=== PATIENT | female | born 1955 | race Hispanic/Latino ===

== ENCOUNTER 2017-07-09 19:01 | Emergency (ER) | payer BC, OTHER ==
[~2017-07-09] VITALS: Ht 160 cm; Wt 61.2 kg
[~2017-07-09 19:01] MED LIST: ATORVASTATIN CA40 MG PO; Z.0.LISINOPRIL40 MG; Z.0.LYRICA100 MG; Z.0.NEXIUM40 MG; Z.0.NORCO 10-325 T1; Z.0.SOMA350 MG
[2017-07-09] MEDS ORDERED: HYDROCODONE/APAP 10MG-325MG TAB PO ONE (19:30)
--- NOTE | 2017-07-09 20:16 | Diagnostic Imaging Report ---
Examination: CT BRAIN WITHOUT CONTRAST History:Fall; head injury. Comparison studies:Head CT dated February 07, 2015. Technique: Axial images were obtained from the skull base to the vertex. Coronal and sagittal images reconstructed from the axial data. Intravenous contrast: None Findings: Scalp: No abnormalities. Bones: No fractures, blastic or lytic lesions. Brain sulci: Appropriate for age. Ventricles: Normal in size and configuration. No hydrocephalus. Parenchyma: Again demonstrated is a 1 cm rounded hypodense lesion in the inferior right putamen which could represent either an old lacunar infarct or dilated perivascular space. No masses, hemorrhage, acute or chronic vascular insults. Sellar/suprasellar region: No abnormalities. Craniocervical junction: Patent foramen magnum. No Chiari one malformation. Incidental findings: None. Impression: 1. No new or acute intracranial abnormalities. No change from February 07, 2015. 2. Unchanged dilated perivascular space versus chronic lacunar infarct in the inferior right putamen. Signed by: Dr. Leola Chapman M.D. on 07/09/2017 8:13 PM
--- NOTE | 2017-07-09 20:43 | Diagnostic Imaging Report ---
HAND 3+ VIEWS LEFT HISTORY: Fall. COMPARISON: None available. FINDINGS: Bones: Small bony fragment along the dorsal wrist may represent an age indeterminate triquetral fracture. Otherwise, no acute displaced fractures. Osseous alignment is within normal limits. Joints: The joint spaces are well-maintained. Soft tissues: The soft tissues appear unremarkable. IMPRESSION: Small bony fragment along the dorsal wrist may represent an age indeterminate triquetral fracture. Recommend correlation with focal point tenderness. Signed by: DR. Darrin Forman MD on 07/09/2017 8:40 PM
[2017-07-09 21:24] VITALS: BP 152/98
== END 2017-07-09 21:30 | disposition home or self-care (01) ==
LOC: ER 19:01
DX: S62.102A Fracture of unspecified carpal bone, left wrist, initial encounter for closed fracture (principal); S00.83XA Contusion of other part of head, initial encounter; I10 Essential (primary) hypertension; M79.7 Fibromyalgia; W01.0XXA Fall on same level from slipping, tripping and stumbling without subsequent striking against object, initial encounter; Y92.019 Unspecified place in single-family (private) house as the place of occurrence of the external cause
CPT/HCPCS: 70450; 99284

== ENCOUNTER → 2018-01-04 | Outpatient (CLI) | payer BC ==
--- NOTE | 2018-01-04 14:53 | Diagnostic Imaging Report ---
PROCEDURE:BONE DXA DUAL ENERGY INDICATION: Postmenopausal osteoporosis screening. The patient history questionnaire was completed and is available on PACS. COMPARISON:None. FINDINGS: Evaluation of the left hip and lumbar spine was performed utilizing DEXA Hologic bone densitometer. The study is technically adequate. The patient's fracture risk is compared to an age-matched control. The patient denies prior surgery/fracture of the spine, hips or forearm. Left femoral neck bone mineral density: 0.663 g/cm2, T-score is -1.8, Z-score is -0.4. Left total hip bone mineral density: 0.819 g/cm2, T-score is -1.1, Z-score is 0.0. Lumbar spine total bone mineral density: 0.842 g/cm2, T-score is -1.9, Z-score is -0.2. IMPRESSION: Bone mineralization by WHO Classification is osteopenia. The fracture risk is increased. Correlate clinically for the necessity and timing of the next bone mineral density study. Dictated by: Abiel Acosta M.D. on 01/04/2018 at 14:58 Electronically approved by: Abiel Acosta M.D. on 01/04/2018 at 14:58
== END ==
LOC: MAMMO 12-24 10:45
PROVIDERS: ATTEND Family Medicine
DX: Z12.31 Encounter for screening mammogram for malignant neoplasm of breast (principal); Z13.820 Encounter for screening for osteoporosis
CPT/HCPCS: 77067; 77080

== ENCOUNTER → 2018-02-05 | Outpatient (CLI) | payer BC ==
--- NOTE | 2018-02-06 08:57 | Diagnostic Imaging Report ---
#[id number] - [id number] #UNILATERAL LEFT DIGITAL DIAGNOSTIC MAMMOGRAM WITH SPOT COMPRESSION: 02/05/2018 Comparison is made to exam dated: 01/04/2018 mammogram - [facility]. Current study contains 3 films. There are scattered fibroglandular elements in the left breast. The focal density in the left breast appears to "press out". No mass is seen. No significant masses, calcifications, or other findings are seen in the breast. There has been no significant interval change. IMPRESSION: BENIGN There is no mammographic evidence of malignancy. A 1 year screening mammogram is recommended. The patient will be notified by letter of the results. Juan Alamo Jr., D.O. cw/:02/05/2018 14:01:11 Paying Teller: Jaymie YOUNG(R)(M), [facility] letter sent: Compared to Prior B9 Mammogram BI-RADS: 2 Benign
== END ==
LOC: MAMMO 12:00
PROVIDERS: ATTEND Family Medicine
DX: R92.2 Inconclusive mammogram (principal)

== ENCOUNTER 2020-02-18 17:55 | Observation (INO) | payer MEDICARE, BC ==
[~2020-02-18] VITALS: Ht 160 cm; Wt 71.2 kg
--- OUTSIDE RECORDS SUMMARY | 2020-02-18 18:11 | XMS REPORT | Continuity of Care Document ---
Author Author [facility] t Organization [facility] Address [address] [place] [address] [place] [phone] Phone Unavailable Care Team Providers Care Cylinder Loader Name Role Phone AJAY FATIMA Attphys Unavailable Ema ZEPEDA Attphys Unavailable Problems This patient has no known problems. Allergies, Adverse Reactions, Alerts This patient has no known allergies or adverse reactions. Medications This patient has no known medications. Procedures This patient has no known procedures. Results Test Description Test Time Test Comments Results Result Comments Source MAMMOGRAPHY DIGITAL DX UNI LT 2018-02-05 12:52:[address] [address] Patient Name: DEB JIANG MR #: [id number] : 1955 Age/Sex: 62/F Req #: [id number] Adm Physician: Ordered by: AJAY FATIMA MD Report #: [id number] Location: MAMMO Room/Bed: Procedure: [id number] MG/MAMMOGRAPHY DIGITAL DX UNI LT Exam Date: 02/05/18 Exam Time: 1230 REPORT STATUS: Signed #[id number] - [id number] #UNILATERAL LEFT DIGITAL DIAGNOSTIC MAMMOGRAM WITH SPOT COMPRESSION: 02/05/2018 Comparison is made to exam dated: 01/04/2018 mammogram - [facility]. Current study contains 3 films. There are scattered fibroglandular elements in the left breast. The focal density in the left breast appears to "press out". No mass is seen. No significant masses, calcifications, or other findings are seen in the breast. There has been no significant interval change. IMPRESSION: BENIGN There is no mammographic evidence of malignancy. A 1 year screening mammogram is recommended. The patient will be notified by letter of the results. Juan Alamo Jr., D.O. cw/:02/05/2018 14:01:11 Reproducer: Jaymie FULLER)(Zeb), [facility] letter sent: Compared to Prior B9 Mammogram BI-RADS: 2 Benign Dictated By: JUAN ALAMO DO 140 Transcribed By: PRAVEENA on 02/05/181400 COPY TO: AJAY FATIMA MD BONE DXA DUAL ENERGY 2018-01-04 14:58:00 [place] [address] Patient Name: DEB JIANG MR #: [id number] : 1955 Age/Sex: 62/F Req #: [id number] [facility] Physician: Ordered by: AJAY FATIMA MD Report #: [id number] Location: MAMMO Room/Bed: Procedure: [id number] DX/BONE DXA DUAL ENERGY Exam Date: Exam Time: REPORT STATUS: Signed PROCEDURE: BONE DXA DUAL ENERGY INDICATION: Postmenopausal osteoporosis screening. The patient history questionnaire was completed and is available on PACS. COMPARISON: None. FINDINGS: Evaluation of the left hip and lumbar spine was performed utilizing DEXA Hologic bone densitometer. The study is technically adequate. The patient's fracture risk is compared to an age-matched control. The patient denies prior surgery/fracture of the spine, hips or forearm. Left femoral neck bone mineral density: 0.663 g/cm2, T-score is -1.8, Z-score is -0.4. Left total hip bone mineral density: 0.819 g/cm2, T-score is -1.1, Z-score is 0.0. Lumbar spine total bone mineral density: 0.842 g/cm2, T-score is -1.9, Z-score is -0.2. IMPRESSION: Bone mineralization by WHO Classification is osteopenia. The fracture risk is increased. Correlate clinically for the necessity and timing of the next bone mineral density study. Dictated by: Laurent Acosta M.D. on 01/04/2018 at 14:58 Electronically approved by: Laurent Acosta M.D. on 01/04/2018 at 14:58 Dictated By: LAURENT ACOSTA MD 1458 T ranscribed By: MARISOL on 01/04/18 1458 COPY TO: AJAY FATIMA MD MAMMOGRAPHY DIGITAL SCR BILAT 2018-01-04 14:19:00 [place] [address] Patient Name: DEB JIANG MR #: [id number] : 1955 Age/Sex: 62/F Req #: [id number] Adm Physician: Ordered by: AJAY FATIMA MD Report #: [id number] Location: MAMMO Room/Bed: Procedure: [id number] MG/MAMMOGRAPHY DIGITAL SCR BILAT Exam Date: 01/04/18 Exam Time: 1333 REPORT STATUS: Signed THIS REPORT HAS BEEN AMENDED. #[id number] - [id number] #BILATERAL DIGITAL SCREENING MAMMOGRAM WITH CAD: 01/04/2018 CLINICAL: Routine screening. No prior exams were available for comparison. Current study contains 4 films. There are scattered fibroglandular elements in both breasts. Current study was also evaluated with a Computer Aided Detection (CAD) system. There is an oval density in the left breast at 10 o'clock middle depth. Vascular calcification and scattered benign calcifications in both breasts are present. No other significant masses, calcifications, or other findings are seen in either breast. IMPRESSION: INCOMPLETE: NEEDS ADDITIONAL IMAGING EVALUATION The oval density in the left breast is indeterminate. Additional views with possible ultrasound are recommended. The patient will be contacted by the Mammography Department to schedule this appointment. Juan Alamo Jr., D.O. cw/:01/24/2018 08:29:01 Reproducer: Jaymie YOUNG(De)(Zeb), [facility] letter sent: Additional Imaging Needed Mammogram BI-RADS: 0 Indeterminate AMENDMENT: 01/31/2018 Juan Alamo Jr., D.O. Comparison to outside mammograms dated 09/14/2016 from [facility] is now possible as they have become available. The oval density appears new. Additional imaging is necessary. Amended BI-RADS: 0 Indeterminate letter sent: Additional Imaging Needed Dictated By: JUAN ALAMO DO 0829 Transcribed By: PRAVEENA on 01/31/18 0916 COPY TO: AJAY FATIMA MD CT BRAIN WO [place] [address] Patient Name: DEB JIANG MR #: [id number] : 1955 Age/Sex: 62/F Req #: [id number] Adm Physician: Ordered by: SHEBA ZEPEDA MD Report #: [id number] Location: ER Room/Bed: Procedure: [id number] CT/CT BRAIN WO Exam Date: 07/09/17 Exam Time: 1945 REPORT STATUS: Signed Examination: CT BRAIN WITHOUT CONTRAST History:Fall; head injury. Comparison studies:Head CT dated February 07, 2015. Technique: Axial images were obtained from the skull base to the vertex. Coronal and sagittal images reconstructed from the axial data. Intravenous contrast: None Findings: Scalp: No abnormalities. Bones: No fractures, blastic or lytic lesions. Brain sulci: Appropriate for age. Ventricles: Normal in size and configuration. No hydrocephalus. Parenchyma: Again demonstrated is a 1 cm rounded hypodense lesion in the inferior right putamen which could represent either an old lacunar infarct or dilated perivascular space. No masses, hemorrhage, acute or chronic vascular insults. Sellar/suprasellar region: No abnormalities. Craniocervical junction: Patent foramen magnum. No Chiari one malformation. Incidental findings: None. Impression: 1. No new or acute intracranial abnormalities. No change from February 07, 2015. 2. Unchanged dilated perivascular space versus chronic lacunar infarct in the inferior right putamen. Signed by: Dr. Brenda Chapman M.D. on 07/09/2017 8:13 PM Dictated By: BRENDA SHARMA MD 12 Transcribed By: REJI on 07/09/172012 COPY TO: SHEBA ZEPEDA MD HAND 3+ VIEWS LEFT [place] [address] Patient Name: DEB JIANG MR #: [id number] : 1955 Age/Sex: 62/F Req #: [id number] Adm Physician: Ordered by: SHEBA ZEPEDA MD Report #: [id number] Location: ER Room/Bed: Procedure: [id number] DX/HAND 3+ VIEWS LEFT Exam Date: 07/09/17 Exam Time: 1944 REPORT STATUS: Signed HAND 3+ VIEWS LEFT HISTORY: Fall. COMPARISON: None available. FINDINGS: Bones: Small bony fragment along the dorsal wrist may represent an age indeterminate triquetral fracture. Otherwise, no acute displaced fractures. Osseous alignment is within normal limits. Joints: The joint spaces are well-maintained. Soft tissues: The soft tissues appear unremarkable. IMPRESSION: Small bony fragment along the dorsal wrist may represent an age indeterminate triquetral fracture. Recommend correlation with focal point tenderness. Signed by: DR. Darrin Lentz MD on 07/09/2017 8:40 PM Dictated By: DARRIN LENTZ MD 39 Transcribed By: REJI on 07/09/172039 COPY TO: SHEBA ZEPEDA MD
--- NOTE | 2020-02-18 18:28 | Emergency Department Note ---
History of Present Illnes History of Present Illness Chief Complaint: Drug Abuse/Intoxication History of Present Illness This is a 64 year old female PATIENTS NOTICED SHE WAS ACTING DIFFERENTLY, CONFUSED, HALLUCINATING. NOT RESPONDING USUAL. HE LET HER "SLEEP IT OFF" AND SHE HAD NOT GOTTEN ANY BETTER. PATIENT DOES NOT REMEMBER WHAT HAPPENED BUT HER HYDROCODONE WAS FILLED YESTERDAY AND 11 ARE MISSING. BACLOFEN BOTTLE ALMOST EMPTY. STATED, "SHE WANTED THE NECK PAIN TO GO AWAY" EMS GAVE HER NARCAN .5 NASAL/.5 IV. PATIENT ARRIVED A/OX4 . 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 Arrival Mode: [facility] Treatment CLINICAL REGISTERED NURSE: IV Additional Treatment CLINICAL REGISTERED NURSE: L/WRIST 22 G/ IVF (400CC)/ NARCAN .5 NASAL, .5 IV Onset (how long ago): unknown Location: all over Quality: lethargic, not acting right Radiation: Reports non-radiation Severity: moderate Onset quality: unable to specify Duration (how long): day(s) (startes today) Progression: worsening Chronicity: new Context: Denies recent illness, Denies recent surgery, Denies trauma/injury Relieving factors: other (narcan administered by ems) Exacerbating factors: none Associated symptoms: Reports other (neck and back pain, chronic in nature) Treatments prior to arrival: other (narcan) Past Medical/Family History Physician Review I have reviewed the patient's past medical and family history. Any updates have been documented here. Past Medical History Recent Fever: No Clinical Suspicion of Infectio: No New/Unexplained Change in Ment: No Past Medical History: Hypertension Other Medical History: PANIC ATTACK FIBROMYALGIA HIGH CHOLESTEROL Other Surgery: DISCECTOMY Social History Smoking Cessation: Never Smoker Alcohol Use: None Any Illegal Drug Use: No Physically hurt or threatened: No Family History Family history of heart diseas: No Other Last Tetanus: 2009 Review of Systems Review of Systems Constitutional: Reports no symptoms EENTM: Reports no symptoms Cardiovascular: Reports no symptoms Respiratory: Reports no symptoms Gastrointestinal: Reports no symptoms Genitourinary: Reports no symptoms Musculoskeletal: Reports no symptoms Integumentary: Reports no symptoms Neurological: Reports as per HPI Psychological: Reports no symptoms Endocrine: Reports no symptoms Hematological/Lymphatic: Reports no symptoms Physical Exam Related Data Allergies: Coded Allergies: No Known Allergies (Unverified , 11/07/11) Triage Vital Signs Vital Signs Date Time Temp Pulse Resp B/P (MAP) Pulse Ox O2 Delivery O2 Flow Rate FiO2 02/18/20 18:07 98.7 65 18 106/67 99 Room Air Vital signs reviewed: Yes Physical Exam CONSTITUTIONAL Constitutional: Present well-developed, Present well-nourished HENT HENT: Present normocephalic, Present atraumatic, Present oropharynx clear/moist, Present nose normal HENT L/R: Present left ext ear normal, Present right ext ear normal EYES Eyes: Reports PERRL, Reports conjunctivae normal NECK Neck: Present ROM normal PULMONARY Pulmonary: Present effort normal, Present breath sounds normal CARDIOVASCULAR Cardiovascular: Present regular rhythm, Present heart sounds normal, Present capillary refill normal, Present normal rate GASTROINTESTINAL Abdominal: Present soft, Present nontender, Present bowel sounds normal GENITOURINARY Genitourinary: Present exam deferred SKIN Skin: Present warm, Present dry MUSCULOSKELETAL Musculoskeletal: Present ROM normal NEUROLOGICAL Neurological: Present alert, Present oriented x 3, Present no gross motor or sensory deficits PSYCHOLOGICAL Psychological: Present mood/affect normal, Present judgement normal Results Laboratory Laboratory Patient Name: DEB JIANG MR #: [id number] : 1955 Age/Sex: 64/F Req #: [id number] Adm Physician: Ordered by: SAVANA GARCIA MD Report #: [id number] Location: Room/Bed: Procedure: [id number] DX/CHEST SINGLE (PORTABLE) Exam Date: 02/18/20 Exam Time: 1845 REPORT STATUS: Signed EXAMINATION: CHEST SINGLE (PORTABLE) INDICATION: Altered mental status COMPARISON: None FINDINGS: TUBES and LINES: None. LUNGS: Normal lung volumes. There is multifocal patchy airspace and interstitial opacities. PLEURA: No pleural effusion or pneumothorax. HEART AND MEDIASTINUM: The cardiomediastinal silhouette is within normal limits with atherosclerotic calcification of the thoracic aortic arch. BONES AND SOFT TISSUES: No acute osseous lesion. Partially imaged cervical spine hardware. Soft tissues are unremarkable. UPPER ABDOMEN: No free air under the diaphragm. IMPRESSION: Multifocal patchy airspace and interstitial opacities most pronounced in the right lower lobe which may represent multifocal pneumonia or aspiration. Signed by: Linwood Castillo MD on 02/18/2020 7:11 PM Dictated By: LINWOOD CASTILLO MD 10 Transcribed By: REJI on 02/18/201910 COPY TO: SAVANA GARCIA MD~ Lab results reviewed: Yes Imaging Imaging results reviewed: Yes Impressions Patient Name: DEB JIANG MR #: [id number] : 1955 Age/Sex: 64/F Req #: [id number] Adm Physician: Ordered by: SAVANA GARCIA MD Report #: [id number] Location: ER Room/Bed: Procedure: [id number] DX/CHEST SINGLE (PORTABLE) Exam Date: 02/18/20 Exam Time: 1845 REPORT STATUS: Signed EXAMINATION: CHEST SINGLE (PORTABLE) INDICATION: Altered mental status COMPARISON: None FINDINGS: TUBES and LINES: None. LUNGS: Normal lung volumes. There is multifocal patchy airspace and interstitial opacities. PLEURA: No pleural effusion or pneumothorax. HEART AND MEDIASTINUM: The cardiomediastinal silhouette is within normal limits with atherosclerotic calcification of the thoracic aortic arch. BONES AND SOFT TISSUES: No acute osseous lesion. Partially imaged cervical spine hardware. Soft tissues are unremarkable. UPPER ABDOMEN: No free air under the diaphragm. IMPRESSION: Multifocal patchy airspace and interstitial opacities most pronounced in the right lower lobe which may represent multifocal pneumonia or aspiration. Signed by: Linwood Castillo MD on 02/18/2020 7:11 PM Dictated By: LINWOOD CASTILLO MD 10 Transcribed By: REJI on 02/18/201910 COPY TO: SAVANA GARCIA MD~ Procedure: [id number] CT/CT BRAIN WO Exam Date: 02/18/20 Exam Time: 1845 REPORT STATUS: Signed CT BRAIN WO HISTORY: Altered mental status COMPARISON: Head CT 07/09/2018 TECHNIQUE: Noncontrast axial scans were obtained from skull base to the vertex. Coronal and sagittal reconstructions obtained from the axial data. One or more of the following dose reduction techniques were used: Automated exposure control, adjustment of the mA and/or kV according to patient size, and/or utilization of iterative reconstruction technique. DISCUSSION: Scalp/Skull: Unremarkable. Brain sulci: Appropriate for patient's age. Ventricles: Normal in size and configuration. No hydrocephalus. Extra-axial spaces: No masses or fluid collections. Mild carotid siphon calcifications. Parenchyma: Stable prominent perivascular space along the lower right putamen versus old lacunar infarct. Otherwise, no mass, hemorrhage, or large vascular territory acute infarct. Dural sinuses: No abnormal densities. Sellar/Suprasellar region: Intact. Skull base: Intact. Incidental findings: None IMPRESSION: 1. No acute intracranial abnormalities. 2. No significant change when compared to head CT dated 07/09/2017. 3. Stable prominent perivascular space or old lacunar infarct in the inferior right putamen. Signed by: Dr. Salazar Coleman M.D. on 02/18/2020 7:09 PM Dictated By: SALAZAR COLEMAN MD 08 Transcribed By: REJI on 02/18/201908 COPY TO: SAVANA GARCIA MD~ Assessment & Plan Medical Decision Making MDM pt with ams that improved after receiving narcan, pt on norco, and multiple muscle relaxers for chronic pain cbc, cmp, ekg, cardiac enzymes, ct brain, ua, acetominophen leve, aspirin level, ua ordered to eval for intracranial injury, electrolyte abnormality, uti, tylenol toxicity, elevated lft's, myocardial infarction will monitor pt for 4 hours 2019 pt found to have multifocal opacities on cxr. lactic acid ordered, blood cultures ordered, covid 19 rocephin 1 gram iv ordered, zithromax 500 mg iv ordered COVID 19 TEST NEGATIVE I SPOKE WITH DR HALE, PLACE IN OBS Assessment & Plan Final Impression: (1) Overdose opiate (2) Aspiration pneumonia Depart Disposition: ADMITTED Last Vital Signs Date Time Temp Pulse Resp B/P (MAP) Pulse Ox O2 Delivery O2 Flow Rate FiO2 02/18/20 18:07 98.7 65 18 106/67 99 Room Air Home Meds Reported Medications Atorvastatin Calcium (ATORVASTATIN CALCIUM) 40 Mg Tablet, 1 TAB PO RDAILY 12/06/12 Carisoprodol (Soma) 350 Mg Tablet 11/07/11 Hydrocodone Bit/Acetaminophen ([place] 10-325 Tablet) 1 Each Tablet 11/07/11 Pregabalin (Lyrica) 100 Mg Capsule 11/07/11 Esomeprazole Mag Trihydrate (Nexium) 40 Mg Capsule. 11/07/11 Lisinopril (Lisinopril) 40 Mg Tablet 11/07/11 SAVANA GARCIA MD Feb 18, 2020 18:28
[2020-02-18 19:08] LABS: BASOPHILS % 0.2 % (0.0-1.0); EOSINOPHILS % 0.1 % (0.0-6.0); HEMATOCRIT 33.1 % (34.2-44.1); HEMOGLOBIN 10.6 g/dL (12.0-16.0); LYMPHOCYTES # (AUTO) 0.6 (1.0-3.2); LYMPHOCYTES % 5.5 % (18.0-39.1); MEAN CORPUSCULAR HEMOGLOBIN 32.4 pg (28-32); MEAN CORPUSCULAR VOLUME 101.2 fL (81-99); MONOCYTES # (AUTO) 0.6 (0.2-0.8); MONOCYTES % 5.6 % (4.4-11.3); NEUTROPHILS # (AUTO) 8.9 (2.1-6.9); NEUTROPHILS % 88.2 % (38.7-80.0); PLATELET COUNT 156 x10e3/uL (140-360); RED BLOOD COUNT 3.27 x10e6/uL (3.6-5.1); RED CELL DISTRIBUTION WIDTH 12.5 % (11.7-14.4)
--- NOTE | 2020-02-18 19:12 | Diagnostic Imaging Report ---
CT BRAIN WO HISTORY: Altered mental status COMPARISON: Head CT 07/09/2018 TECHNIQUE: Noncontrast axial scans were obtained from skull base to the vertex. Coronal and sagittal reconstructions obtained from the axial data. One or more of the following dose reduction techniques were used: Automated exposure control, adjustment of the mA and/or kV according to patient size, and/or utilization of iterative reconstruction technique. DISCUSSION: Scalp/Skull: Unremarkable. Brain sulci: Appropriate for patient's age. Ventricles: Normal in size and configuration. No hydrocephalus. Extra-axial spaces: No masses or fluid collections. Mild carotid siphon calcifications. Parenchyma: Stable prominent perivascular space along the lower right putamen versus old lacunar infarct. Otherwise, no mass, hemorrhage, or large vascular territory acute infarct. Dural sinuses: No abnormal densities. Sellar/Suprasellar region: Intact. Skull base: Intact. Incidental findings: None IMPRESSION: 1. No acute intracranial abnormalities. 2. No significant change when compared to head CT dated 07/09/2017. 3. Stable prominent perivascular space or old lacunar infarct in the inferior right putamen. Signed by: Dr. Salazar Coleman M.D. on 02/18/2020 7:09 PM
--- NOTE | 2020-02-18 19:15 | Diagnostic Imaging Report ---
EXAMINATION: CHEST SINGLE (PORTABLE) INDICATION: Altered mental status COMPARISON: None FINDINGS: TUBES and LINES: None. LUNGS: Normal lung volumes. There is multifocal patchy airspace and interstitial opacities. PLEURA: No pleural effusion or pneumothorax. HEART AND MEDIASTINUM: The cardiomediastinal silhouette is within normal limits with atherosclerotic calcification of the thoracic aortic arch. BONES AND SOFT TISSUES: No acute osseous lesion. Partially imaged cervical spine hardware. Soft tissues are unremarkable. UPPER ABDOMEN: No free air under the diaphragm. IMPRESSION: Multifocal patchy airspace and interstitial opacities most pronounced in the right lower lobe which may represent multifocal pneumonia or aspiration. Signed by: Yayo Jones MD on 02/18/2020 7:11 PM
[2020-02-18 19:26] LABS: ALBUMIN 3.7 g/dL (3.5-5.0); ALBUMIN/GLOBULIN RATIO 1.5 (0.8-2.0); ANION GAP 22.2 mmol/L (8-16); CALCIUM 8.7 mg/dL (8.4-10.2); CREATININE, SERUM 2.71 mg/dL (0.57-1.11); POTASSIUM 4.2 mmol/L (3.5-5.1)
[2020-02-18 19:29] LABS: SALICYLATE < 5.0 mg/dL (0-30)
[2020-02-18 19:34] LABS: CREATINE KINASE MB 3.3 ng/mL (0-5.0)
[2020-02-18] MEDS ORDERED: SODIUM CHLORIDE 0.9% 1000ML 1,000 ML ONE (19:43)
[2020-02-18] MEDS ORDERED: SODIUM CHLORIDE 0.9% 1000ML 1,000 ML IV ONE (19:45)
[2020-02-18] MEDS ORDERED: NALOXONE HCL 2MG/2 ML SYRINGE IV ONE (19:45)
[2020-02-18 19:59] LABS: CLARITY,URINE CLEAR (CLEAR); COLOR,URINE YELLOW (YELLOW); KETONES,URINE TRACE (NEGATIVE); LEUKOCYTE ESTERASE ,URINE NEGATIVE (NEGATIVE); NITRITE,URINE NEGATIVE (NEGATIVE); PROTEIN,URINE DIPSTICK 1+ (NEGATIVE)
[2020-02-18 20:00] LABS: AMPHETAMINES SCREEN,URINE NEGATIVE (NEGATIVE); BENZODIAZEPINES SCREEN,URINE NEGATIVE (NEGATIVE); PHENCYCLIDINE SCREEN,URINE NEGATIVE (NEGATIVE)
[2020-02-18 20:01] LABS: BILIRUBIN,URINE NEGATIVE (NEGATIVE); URINE UROBILINOGEN 0.2 mg/dL (0.2 - 1)
[2020-02-18 20:03] LABS: BACTERIA,URINE FEW /HPF; EPITHELIAL CELLS,URINE FEW /LPF; RBC,URINE 0-5 /HPF (0-5); WBC,URINE (MAN) 0-5 /HPF (0-5)
[2020-02-18] MEDS ORDERED: CEFTRIAXONE SOD 1 GM/NS 50 ML 50 ML IV ONE (20:30)
[2020-02-18] MEDS ORDERED: AZITHROMYCIN 500MG/NS 250 ML 250 ML IV ONE (21:00)
--- OUTSIDE RECORDS SUMMARY | 2020-02-18 22:37 | XMS REPORT | Continuity of Care Document ---
Author Author [facility] Organization [facility] Address [address] [place] [address] [place] [id number] Phone Unavailable Care Team Providers Care Tour Conductor Name Role Phone Joana GARCIA Attphys Unavailable AJAY FATIMA Attphys Unavailable Ema ZEPEDA Attphys Unavailable Problems This patient has no known problems. Allergies, Adverse Reactions, Alerts This patient has no known allergies or adverse reactions. Medications This patient has no known medications. Procedures This patient has no known procedures. Results Test Description Test Time Test Comments Results Result Comments Source CHEST SINGLE (PORTABLE) 2020-02-18 19:09:[address] [address] Patient Name: DEB JIANG MR #: [id number] : 1955 Age/Sex: 64/F Req #: [id number] Adm Physician: Ordered by: SAVANA GARCIA MD Report #: [id number] Location: ER Room/Bed: Procedure: [id number] DX/CHEST SINGLE (PORTABLE) Exam Date: 02/18/20 Exam Time: 1845 REPORT STATUS: Signed EXAMINATION: CHEST SINGLE (PORTABLE) INDICATION: Altered mental status COMPARISON: None FINDINGS: TUBES and LINES: None. LUNGS: Normal lung volumes. There is multifocal patchy airspace and interstitial opacities. PLEURA: No pleural effusion or pneumothorax. HEART AND MEDIASTINUM: The cardiomediastinal silhouette is within normal limits with atherosclerotic calcification of the thoracic aortic arch. BONES AND SOFT TISSUES: No acute osseous lesion. Partially imaged cervical spine hardware. Soft tissues are unremarkable. UPPER ABDOMEN: No free air under the diaphragm. IMPRESSION: Multifocal patchy airspace and interstitial opacities most pronounced in the right lower lobe which may represent multifocal pneumonia or aspiration. Signed by: Linwood Castillo MD on 02/18/2020 7:11 PM Dictated By: LINWOOD CASTILLO MD 10 Transcribed By: REJI on 02/18/201910 COPY TO: SAVANA GARCIA MD CT BRAIN WO 2020-02-18 19:04:00 [place] [address] Patient Name: DEB JIANG MR #: [id number] : 1955 Age/Sex: 64/F Req #: [id number] Adm Physician: Ordered by: SAVANA GARCIA MD Report #: [id number] Location: ER Room/Bed: Procedure: [id number] CT/CT BRAIN WO Exam Date: 02/18/20 Exam Time: 1844 REPORT STATUS: Signed CT BRAIN WO HISTORY: Altered mental status COMPARISON: Head CT 07/09/2018 TECHNIQUE: Noncontrast axial scans were obtained from skull base to the vertex. Coronal and sagittal reconstructions obtained from the axial data. One or more of the following dose reduction techniques were used: Automated exposure control, adjustment of the mA and/or kV according to patient size, and/or utilization of iterative reconstruction technique. DISCUSSION: Scalp/Skull: Unremarkable. Brain sulci: Appropriate for patient's age. Ventricles: Normal in size and configuration. No hydrocephalus. Extra-axial spaces: No masses or fluid collections. Mild carotid siphon calcifications. Parenchyma: Stable prominent perivascular space along the lower right putamen versus old lacunar infarct. Otherwise, no mass, hemorrhage, or large vascular territory acute infarct. Dural sinuses: No abnormal densities. Sellar/Suprasellar region: Intact. Skull base: Intact. Incidental findings: None IMPRESSION: 1. No acute intracranial abnormalities. 2. No significant change when compared to head CT dated 07/09/2017. 3. Stable prominent perivascular space or old lacunar infarct in the inferior right putamen. Signed by: Dr. Salazar Coleman M.D. on 02/18/2020 7:09 PM Dictated By: SALAZAR COLEMAN MD 08 Transcribed By: REJI on 02/18/201908 COPY TO: SAVANA GARCIA MD MAMMOGRAPHY DIGITAL DX UNI LT 2018-02-05 12:52:00 [place] [address] Patient Name: DEB JIANG MR #: [id number] : 1955 Age/Sex: 62/F Req #: [id number] [facility] [place] Physician: Ordered by: AJAY FATIMA MD Report #: [id number] Location: MAMMO Room/Bed: Procedure: [id number] MG/MAMMOGRAPHY DIGITAL DX UNI LT Exam Date: 02/05/18 Exam Time: 1230 REPORT STATUS: Signed #[id number] - [id number] #UNILATERAL LEFT DIGITAL DIAGNOSTIC MAMMOGRAM WITH SPOT COMPRESSION: 02/05/2018 Comparison is made to exam dated: 01/04/2018 mammogram - [facility]. Current study contains 3 films. There are [...] notified by letter of the results. Juan Henry Jr., D.O. cw/:02/05/2018 14:01:11 Political Worker: Jaymie YOUNG(De)(Zeb), [facility] letter sent: Compared to Prior B9 Mammogram BI-RADS: 2 Benign Dictated By: JUAN HENRY DO 1401 Transcribed By: PRAVEENA on 02/05/18 140 COPY TO: AJAY FATIMA MD BONE DXA DUAL ENERGY 2018-01-04 14:58:00 [place] [address] Patient Name: DEB JIANG MR #: [id number] : 1955 Age/Sex: 62/F Req #: [id number] [facility] [place] Physician: Ordered by: AJAY FATIMA MD Report #: [id number] Location: MAMMO Room/Bed: Procedure: [id number] DX/BONE DXA DUAL ENERGY Exam Date: Exam [...] MD MAMMOGRAPHY DIGITAL SCR BILAT 2018-01-04 14:19:00 [place] [address] Patient Name: DEB JIANG MR #: [id number] : 1955 Age/Sex: 62/F Req #: [id number] [facility] [place] Physician: Ordered by: AJAY FATIMA MD Report #: [id number] Location: MAMMO Room/Bed: Procedure: [id number] MG/MAMMOGRAPHY DIGITAL SCR BILAT Exam Date: 01/04/18 Exam Time: 1333 REPORT STATUS: Signed THIS REPORT HAS BEEN AMENDED. #[id number] - [id number] #BILATERAL DIGITAL SCREENING MAMMOGRAM WITH [...] Mammography Department to schedule this appointment. Juan Henry Jr., D.O. cw/:01/24/2018 08:29:01 Political Worker: Jaymie FULLER)(Zeb), [facility] letter sent: Additional Imaging Needed Mammogram BI-RADS: 0 Indeterminate AMENDMENT: 01/31/2018 Juan Henry Jr., D.O. Comparison to outside mammograms dated 09/14/2016 from [facility] is now possible as they have become available. The oval density appears new. Additional imaging is necessary. Amended BI-RADS: 0 Indeterminate letter sent: Additional Imaging Needed Dictated By: JUAN HENRY DO 0829 Transcribed By: PRAVEENA on 01/31/18 0916 COPY TO: AJAY FATIMA MD CT BRAIN WO [place] [address] Patient Name: DEB JIANG MR #: [id number] : 1955 Age/Sex: 62/F Req #: [id number] Adm Physician: Ordered by: SHEBA ZEPEDA MD Report #: [id number] Location: ER Room/Bed: Procedure: [id number] CT/CT BRAIN WO Exam Date: 07/09/17 Exam [...] SHEBA ZEPEDA MD HAND 3+ VIEWS LEFT [place] [address] Patient Name: DEB JIANG MR #: [id number] : 1955 Age/Sex: 62/F Req #: [id number] Adm Physician: Ordered by: SHEBA ZEPEDA MD Report #: [id number] Location: ER Room/Bed: Procedure: [id number] DX/HAND 3+ VIEWS LEFT Exam Date: 07/09/17 [...]
[2020-02-18] MEDS: SODIUM CHLORIDE 0.9% 1000ML 1,000 ML IV SCH (22:50)
[2020-02-18 23:59] LABS: CREATINE KINASE MB 1.9 ng/mL (0-5.0)
[2020-02-19] VITALS (9 sets, daily range): BP systolic 91–141; BP diastolic 52–91
--- NOTE | 2020-02-19 00:30 | NUR ---
PATIENT'S HOME MEDICATIONS COUNTED. SOMA 0, BACLOFEN 16, PREDNISONE 4, TIZANIDINE 84, FLEXERIL 25, VICODIN 11. MEDICATION COUNT WITNESS BY STEWART MCLAIN LVN AND FIDEL JAMISON RN. MEDICATIONS SECURED AT ER NURSES STATION. FAMILY CONTACTED TO KEY ACCOUNT COORDINATOR MEDICATIONS.
--- NOTE | 2020-02-19 02:30 | NUR ---
Admitted patient alert and oriented, vitals stable.
[2020-02-19] MEDS: ACETAMINOPHEN 325 MG TAB PO PRN (02:40)
[2020-02-19 04:49] LABS: BASOPHILS # (AUTO) 0.1 (0.0-0.1); BASOPHILS % 0.4 % (0.0-1.0); EOSINOPHILS % 0.1 % (0.0-6.0); HEMOGLOBIN 11.3 g/dL (12.0-16.0); LYMPHOCYTES # (AUTO) 1.4 (1.0-3.2); LYMPHOCYTES % 10.8 % (18.0-39.1); MEAN CORPUSCULAR HEMOGLOBIN 32.8 pg (28-32); MEAN CORPUSCULAR HGB CONC 33.2 g/dL (31-35); MEAN CORPUSCULAR VOLUME 98.6 fL (81-99); MONOCYTES # (AUTO) 0.7 (0.2-0.8); MONOCYTES % 5.2 % (4.4-11.3); NEUTROPHILS # (AUTO) 10.9 (2.1-6.9); NEUTROPHILS % 83.2 % (38.7-80.0); PLATELET COUNT 193 x10e3/uL (140-360); RED BLOOD COUNT 3.45 x10e6/uL (3.6-5.1); RED CELL DISTRIBUTION WIDTH 12.3 % (11.7-14.4)
[2020-02-19 05:17] LABS: CREATINE KINASE MB 2.4 ng/mL (0-5.0)
[2020-02-19 05:29] LABS: ALBUMIN 3.5 g/dL (3.5-5.0); ALBUMIN/GLOBULIN RATIO 1.4 (0.8-2.0); ANION GAP 17.4 mmol/L (8-16); CALCIUM 8.5 mg/dL (8.4-10.2); CREATININE, SERUM 1.14 mg/dL (0.57-1.11); POTASSIUM 3.4 mmol/L (3.5-5.1)
--- NOTE | 2020-02-19 06:04 | NUR ---
SPOKE TO PATIENT'S , SHERRY. HE STATED HE WOULD COME DIRECTOR OF RESEARCH AND DEVELOPMENT THE PATIENT'S MEDS FROM ER NURSE'S STATION IN APPROXIMATELY AN HOUR AND A HALF.
[2020-02-19] MEDS: SODIUM CHLORIDE 0.9% 1000ML 1,000 ML IV SCH ×3 (06:40→23:10)
[2020-02-19] MEDS: HYDROCODONE/APAP 5MG-325MG TAB PO PRN ×2 (11:58→17:41)
[2020-02-19] MEDS ORDERED: ALBUTEROL/IPRATROPIUM 3 ML NEB NEB PRN (13:45)
[2020-02-19] MEDS ORDERED: POTASSIUM BICARBONATE/CIT AC 20 MEQ TABLET.EFF PO ONE (14:45)
[2020-02-19] MEDS: PIPER-TAZ 3.375 GM 50 ML IV SCH (17:41)
[2020-02-19] MEDS: ENOXAPARIN 30 MG/0.3 ML SYR SC SCH (17:41)
[2020-02-19] MEDS ORDERED: CEFTRIAXONE SOD 1 GRAM/0.9% SOD CHL 50ML BAG IV SCH (20:00)
[2020-02-19] MEDS: ATORVASTATIN 10 MG TAB PO SCH (21:00)
[2020-02-19] MEDS ORDERED: AZITHROMYCIN 500MG/SOD CHL 0.9% 250ML BAG IV SCH (22:00)
--- NOTE | 2020-02-19 23:00 | NUR ---
Pt transferred from [place] [address] via bed. Pt alert and awake. No complaints of pain or discomfort. Vitals stable. No needs at this time. Call light within reach. Will continue to monitor.
--- NOTE | 2020-02-19 23:09 | NUR ---
Transferred to [facility], patient stable
[2020-02-20] VITALS (8 sets, daily range): BP systolic 141–174; BP diastolic 78–91
[2020-02-20] MEDS: PIPER-TAZ 3.375 GM 50 ML IV SCH ×4 (00:10→21:17)
[2020-02-20] MEDS: HYDROCODONE/APAP 5MG-325MG TAB PO PRN ×4 (00:15→19:50)
--- NOTE | 2020-02-20 04:54 | History and Physical ---
PRIMARY CARE PHYSICIAN: Dr. Canales at [facility]. CHIEF COMPLAINT: Altered mental status due to overdose on opiates and aspiration pneumonia. HISTORY OF PRESENT ILLNESS: This is a 64-year-old female with past medical history of hypertension, high cholesterol, GERD, fibromyalgia on Lyrica, muscle relaxers and Lamont was brought in by her for increased altered mental status and weakness. She reports she has been feeling weak and sick for the past five days, has not been eating well, but continue to take medications. Per family she had just filled her Lamont and muscle relaxers and there was only 11 left in the bottles. She denies any fever, chills, chest pain, productive cough, shortness of breath, nausea, vomiting, or diarrhea. She denies any diaphoresis or night sweats. She reports she feels sick and poor appetite. She is admitted here for further evaluation. CT brain upon arrival showed no acute intracranial abnormalities. Chest x-ray showed multifocal patchy airspace and interstitial opacities more pronounced in the right lower lobe, Which may represent multifocal pneumonia or aspiration. The patient is unable how she ended up here or what happened. PAST MEDICAL HISTORY: 1. Hypertension. 2. High cholesterol. 3. Acid reflux. 4. Fibromyalgia. PAST SURGICAL HISTORY: 1. She reports hysterectomy. 2. Multiple spinal surgeries and neck surgeries. 3. . FAMILY MEDICAL HISTORY: She reports father and mother had cancer. SOCIAL HISTORY: She reports she stopped smoking about 30 years ago and denies any alcohol or illicit drug use. ALLERGIES: NO KNOWN DRUG ALLERGIES. REVIEW OF SYSTEMS: Ten system reviewed and negative except as reported in HPI. PHYSICAL EXAMINATION: VITAL SIGNS: Temperature 98.2, pulse is 81, respirations 18, blood pressure 100/72, pulse ox is 95% on room air. GENERAL: Fatigue and slightly lethargic. HEENT: Normocephalic, atraumatic. NECK: Supple. LUNGS: Decreased breath sounds. CARDIOVASCULAR: Regular rate and rhythm. GI: Soft and nontender. NEUROLOGIC: Alert, awake, and oriented x3. Mildly sleepy. MUSCULOSKELETAL: Moves all extremities. No edema. No edema. SKIN: Dry. PSYCH: Calm. LABORATORY DATA: WBC 13.13, hemoglobin 11.3, hematocrit 34.0, platelet 193,000. Sodium 141, potassium 3.4, CO2 19, anion gap 17.4, BUN was 49 and now 29, creatinine 2.71 and now 1.14, estimated GFR was 18 and now 48. Lactic acid 0.9. AST 22, ALT 18. Troponin x3 negative. Globulin 2.5. Urine opiates positive. Everything else negative. Negative alcohol, acetaminophen. UA is yellow and clear, negative for nitrates, leukocytes, leukocyte esterase, or bacteria. Chávez virus PCR is not detected. Blood cultures pending. IMAGING: Brain CT is negative for acute intracranial abnormalities. Chest x-ray with multifocal pneumonia. IMPRESSION: 1. Altered mental status due to overdose on opiates. CT brain was negative for acute process. Monitored in the IMCU. IV fluids and improving symptoms. No respiratory issues noted. 2. Acute kidney injury. We will continue with aggressive IV fluids, hydration and improving creatinine to 1.14. We will continue with IV fluids. 3. Multifocal pneumonia, likely due to aspiration. We will continue with Zosyn. 4. Leukocytosis. Likely due to pneumonia. We will continue with IV antibiotics and repeat labs in a.m. She is afebrile. 5. Hypertension, now hypotensive. We will hold her blood pressure medicine. 6. High cholesterol. We will continue statin. 7. Gastroesophageal reflux disease. We will continue on omeprazole. 8. History of fibromyalgia. We will give her hydrocodone cautiously. 9. Deep vein thrombosis prophylaxis. We will give Lovenox subcu. PLAN: Continue IV fluids and IV antibiotics. We will repeat chest x-ray in a.m. Dictated by AB Friedman Harsh Hood MD MY/MODL /[id number]
[2020-02-20] MEDS: SODIUM CHLORIDE 0.9% 1000ML 1,000 ML IV SCH (05:32)
[2020-02-20 06:46] LABS: BASOPHILS # (AUTO) 0.1 (0.0-0.1); BASOPHILS % 0.7 % (0.0-1.0); EOSINOPHILS # (AUTO) 0.1 (0.0-0.4); EOSINOPHILS % 1.1 % (0.0-6.0); HEMATOCRIT 40.4 % (34.2-44.1); HEMOGLOBIN 13.3 g/dL (12.0-16.0); LYMPHOCYTES # (AUTO) 1.6 (1.0-3.2); LYMPHOCYTES % 16.3 % (18.0-39.1); MEAN CORPUSCULAR HEMOGLOBIN 31.7 pg (28-32); MEAN CORPUSCULAR HGB CONC 32.9 g/dL (31-35); MEAN CORPUSCULAR VOLUME 96.4 fL (81-99); MONOCYTES # (AUTO) 0.6 (0.2-0.8); MONOCYTES % 5.9 % (4.4-11.3); NEUTROPHILS # (AUTO) 7.3 (2.1-6.9); NEUTROPHILS % 74.9 % (38.7-80.0); PLATELET COUNT 206 x10e3/uL (140-360); RED BLOOD COUNT 4.19 x10e6/uL (3.6-5.1); RED CELL DISTRIBUTION WIDTH 12.5 % (11.7-14.4)
[2020-02-20 07:09] LABS: ANION GAP 19.7 mmol/L (8-16); BLOOD UREA NITROGEN 11 mg/dL (7-26); BUN/CREATININE RATIO 16 (6-25); CALCIUM 9.1 mg/dL (8.4-10.2); CARBON DIOXIDE 19 mmol/L (22-29); CHLORIDE 111 mmol/L (98-107); CREATININE, SERUM 0.68 mg/dL (0.57-1.11); EST GLOMERULAR FILTRATION RATE > 60 ML/MIN (60-); GLUCOSE 113 mg/dL (74-118); POTASSIUM 3.7 mmol/L (3.5-5.1); SODIUM 146 mmol/L (136-145)
--- NOTE | 2020-02-20 07:32 | NUR ---
Bedside report given to dayshift RN. Pt alert, awake, and stable. Care transferred.
--- NOTE | 2020-02-20 07:32 | NUR ---
CHANGE OF SHIFT REPORT RECEIVED FROM PM NURSE. PT IN STABLE CONDITION.
[2020-02-20] MEDS: ONDANSETRON HCL INJ 2MG/ML 2ML 2 MG/ML VIAL IV PRN (08:53)
[2020-02-20] MEDS: ACETAMINOPHEN 325 MG TAB PO PRN (08:55)
[2020-02-20] MEDS: HYDRALAZINE HCL 10 MG TAB PO PRN (08:56)
[2020-02-20] MEDS: OMEPRAZOLE 20 MG CAP PO SCH (08:56)
[2020-02-20] MEDS ORDERED: LISINOPRIL 20 MG TAB PO SCH (09:00)
--- NOTE | 2020-02-20 09:22 | NUR ---
CALL TO RONNIE RODRIGUEZ REGARDING 2 DAY OBS. STATES SHE WILL NEED TO SEE THE PT FIRST.
--- NOTE | 2020-02-20 14:22 | NUR ---
PT'S BUSTOS REMOVED, TIP INTACT. PT TOLERATED WELL.
[2020-02-20] MEDS: LISINOPRIL 20 MG TAB PO SCH (16:05)
[2020-02-20] MEDS: ENOXAPARIN 30 MG/0.3 ML SYR SC SCH (16:06)
--- NOTE | 2020-02-20 16:45 | NUR ---
F/U CALL TO RONNIE RODRIGUEZ. STATES PT OK TO FLIP TO INPT. DISCUSSED PT NOT MEETING INPT AT THIS TIME. STATES SHE WILL PROBABLY DC TOMORROW. PT LEFT IN OBS. LEFT EMAIL FOR WEEKEND CM; MY.
--- NOTE | 2020-02-20 18:48 | Progress Note ---
DATE: 02/20/2020 SUBJECTIVE: The patient is more awake today, reported one time diarrhea this morning, mild cough, insomnia overnight. Denies any shortness of breath, fever, chills, chest pain, or abdominal pain. PHYSICAL EXAMINATION: VITAL SIGNS: Temperature 98.7, pulse is 81, respirations 18, blood pressure 164/83, pulse ox is 97% on room air. GENERAL: No acute distress. HEENT: Normocephalic, atraumatic. NECK: Supple. LUNGS: Decreased breath sounds. CARDIOVASCULAR: Regular rate and rhythm. GI: Soft and nontender. NEUROLOGIC: Alert, awake, and oriented x3. MUSCULOSKELETAL: Moves all extremities. SKIN: Dry. PSYCH: Calm. LABORATORY DATA: WBC 9.78, hemoglobin 13.3, hematocrit 40.4, platelet 206,000. Sodium 146, potassium 3.7, CO2 is 19, BUN 11, creatinine 0.68. Estimated GFR greater than 60, glucose 113, calcium 9.1. Coronavirus PCR is negative. Blood cultures negative. IMPRESSION: 1. Altered mental status due to overdose on opiates. CT brain was negative for acute process. Mentation improved. No respiratory distress. 2. Acute kidney injury. Improved with IV fluid hydration. We will discontinue IV. 3. Multifocal pneumonia, likely due to aspiration. We will continue with Zosyn. 4. Leukocytosis. Likely due to pneumonia. Continue IV fluids. Resolved. 5. Hypertension. We will resume lisinopril daily and add hydralazine IV p.r.n. 6. High cholesterol. Continue statin. 7. History of fibromyalgia on chronic pain. We will give hydrocodone 5/325 one tablet cautiously. 8. GI and DVT prophylaxis. Continue on PPI and Lovenox subcu. PLAN: Continue antibiotics, physical therapy to evaluate and treat, anticipate discharge home if continues to improve. Dictated by AB Friedman Harsh Hood MD MY/MODL /[id number]
[2020-02-20] MEDS: ATORVASTATIN 10 MG TAB PO SCH (20:08)
[2020-02-21] VITALS (11 sets, daily range): BP systolic 164–184; BP diastolic 62–98
[2020-02-21] MEDS: HYDROCODONE/APAP 5MG-325MG TAB PO PRN ×4 (02:25→23:05)
[2020-02-21] MEDS: ONDANSETRON HCL INJ 2MG/ML 2ML 2 MG/ML VIAL IV PRN (02:25)
[2020-02-21] MEDS: PIPER-TAZ 3.375 GM 50 ML IV SCH ×3 (04:38→16:00)
[2020-02-21] MEDS: HYDRALAZINE HCL 10 MG TAB PO PRN ×3 (06:11→20:54)
[2020-02-21] MEDS: OMEPRAZOLE 20 MG CAP PO SCH (09:04)
[2020-02-21] MEDS: LISINOPRIL 20 MG TAB PO SCH (09:04)
[2020-02-21] MEDS ORDERED: AUGMENTIN 875-1 EACH PO (15:03)
--- NOTE | 2020-02-21 15:03 | NUR ---
INFORMED QUALITY SUPERVISOR OF PT'S BLOOD PRESSURE. ORDERS FOR DISCHARGE RECEIVED.
[2020-02-21] MEDS: ENOXAPARIN 30 MG/0.3 ML SYR SC SCH (17:00)
--- NOTE | 2020-02-21 19:10 | NUR ---
PT'S REPEAT BLOOD PRESSURE 183/90, HEART RATE 82. WILL ADMINISTER CLONIDINE AND RECHECK VITALS.
--- NOTE | 2020-02-21 19:21 | NUR ---
PT INFORMED THAT HER DISCHARGE IS POSTPONED UNTIL HER BLOOD PRESSURE IMPROVED. PT AGREEABLE WITH PLAN.
--- NOTE | 2020-02-21 19:25 | NUR ---
REPORT GIVEN TO PM NURSE. INFORMED HER PT IS PENDING DISCHARGE ONCE HER BLOOD PRESSURE IS STABLE AND IMPROVED.
[2020-02-21] MEDS ORDERED: CLONIDINE HCL 0.1 MG TAB PO ONE (19:30)
--- NOTE | 2020-02-21 20:07 | Discharge Summary ---
PCP: Dr. Canales at [facility]. DISCHARGE DIAGNOSES: 1. Altered mental status due to overdose on opiates. 2. Acute kidney injury. 3. Multifocal pneumonia, likely due to aspiration pneumonia. 4. Leukocytosis. 5. Hypertension. 6. High cholesterol. 7. History of fibromyalgia, on chronic pain medication. CONSULTANTS: None. PROCEDURES: None. HISTORY: Per HPI. HOSPITAL COURSE: This is a 64-year-old female, who presented to the ER with increased altered mental status. Per family, she was not acting herself, has taken most of the recently filled medication. CT brain on arrival was negative for acute abnormality. Chest x-ray showed multifocal pneumonia, likely due to aspiration. She was started on IV fluid hydration and monitored in IMCU on telemetry. She was started on IV antibiotics, remained afebrile. Blood cultures were negative. She was also dehydrated upon arrival with creatinine of 2.71, which is decreased with IV fluid hydration to a creatinine 0.68. She reports she does not remember taking those many pills, she is much more awake and alert, is able to get up and walk with minimal to no assistance. Vital signs are stable. She is alert, awake, and oriented x3. PHYSICAL EXAMINATION: VITAL SIGNS: Temperature is 98.9, pulse is 78, respirations 20, blood pressure 184/91, and pulse ox is 96% on room air. GENERAL: No acute distress. HEENT: Normocephalic and atraumatic. NECK: Supple. LUNGS: Clear to auscultation. CARDIOVASCULAR: Regular rate and rhythm. GI: Soft and nontender. NEUROLOGIC: Alert, awake, and oriented x3. MUSCULOSKELETAL: Moves all extremities. SKIN: Dry. PSYCH: Calm. CONDITION AT DISCHARGE: Improved and stable. DISCHARGE MEDICATIONS: Please see medication reconciliation list. Added Augmentin x3 days for aspiration pneumonia. FOLLOWUP: Follow up with Dr. Canales, her PCP in 1 week. Instructed the patient to be careful with pain medication use. She reports her will be administering and keeping an eye on her from now on. TIME SPENT: Total time of discharge is 32 minutes. Dictated by AB Friedman Shaunaching Kaleb Hood MD MY/MODL /[id number] cc: Dr. Parker Bryant
--- NOTE | 2020-02-21 22:36 | NUR ---
PT'S DISCHARGE HELD DUE TO HYPERTENSION. PT MAY DC HOME IN AM IF SBP < 160 PER RNONIE BELTRE. WILL UPDATE PT ON NEW ORDERS.
[2020-02-21] MEDS: ATORVASTATIN 10 MG TAB PO SCH (22:48)
[2020-02-21] MEDS: AMLODIPINE BESYLATE 5 MG TAB PO SCH (22:49)
[2020-02-22] VITALS: BP 145/75
[2020-02-22 04:00] VITALS: BP 162/89
[2020-02-22] MEDS: HYDROCODONE/APAP 5MG-325MG TAB PO PRN (05:07)
--- NOTE | 2020-02-22 07:32 | NUR ---
Bedside report given to dayshift nurse. Pt alert and awake. No needs at this time. Care transferred.
[2020-02-22 08:37] VITALS: BP 182/95
[2020-02-22] MEDS: AMLODIPINE BESYLATE 5 MG TAB PO SCH (08:45)
[2020-02-22] MEDS: OMEPRAZOLE 20 MG CAP PO SCH (08:45)
[2020-02-22] MEDS: LISINOPRIL 20 MG TAB PO SCH (08:45)
[2020-02-22] MEDS ORDERED: AMLODIPINE BESYLATE 5 MG TAB PO SCH (09:00)
[2020-02-22 09:20] VITALS: BP 182/95
--- NOTE | 2020-02-22 09:29 | NUR ---
SPOKE W MARGARETH RN REGARDING PT'S DC. STATES DC WAS HELD DUE TO ELEVATED BP. STATES SHE HAS GIVEN HER MEDS AND WILL RECHECK MANUAL BP IN 1HR. STATES HER SYS <160. DISCUSSED FLIPPING PT TO INPT IF BP REMAINS ELEVATED. SENT TO [facility] FOR LOC DETERMINATION.
[2020-02-22] MEDS: ONDANSETRON HCL INJ 2MG/ML 2ML 2 MG/ML VIAL IV PRN (09:45)
[2020-02-22 10:05] VITALS: BP 162/90
[2020-02-22] MEDS: HYDRALAZINE HCL 10 MG TAB PO PRN (10:10)
[2020-02-22] MEDS: ACETAMINOPHEN 325 MG TAB PO PRN (11:16)
== END 2020-02-22 11:45 | disposition home or self-care (01) ==
LOC: ER 18:09 → ERHOLD 22:34 → IMCU 02-19 00:52 → MED/SURG3 02-19 22:58
PROVIDERS: ADMIT Internal Medicine; ATTEND Internal Medicine
DX: T40.2X1A Poisoning by other opioids, accidental (unintentional), initial encounter (principal); J69.0 Pneumonitis due to inhalation of food and vomit; I10 Essential (primary) hypertension; E78.00 Pure hypercholesterolemia, unspecified; K21.9 Gastro-esophageal reflux disease without esophagitis; M79.7 Fibromyalgia; N17.9 Acute kidney failure, unspecified; Z11.59 Encounter for screening for other viral diseases
CPT/HCPCS: 36415 ×4; 70450; 71045; 80048; 80053 ×2; 80307; 80320; 80329 ×2; 81001; 82550 ×2; 82553 ×2; 82948; 83605; 84484 ×2; 85025 ×3; 87040; 93005; 99284; G0378 ×5; J0456; J0696; J1650 ×2; J2310; J2405 ×3; J2543 ×3; J7030 ×3; U0002

== ENCOUNTER 2020-02-28 14:22 | Emergency (ER) | payer MEDICARE, BC ==
[~2020-02-28] VITALS: Ht 157.5 cm; Wt 65.8 kg
[~2020-02-28 14:22] MED LIST changes: +AUGMENTIN 875-1 EACH PO
[2020-02-28] MEDS ORDERED: SODIUM CHLORIDE 0.9% 1000ML 1,000 ML IV STA (14:55)
[2020-02-28 15:47] LABS: BASOPHILS # (AUTO) 0.1 (0.0-0.1); BASOPHILS % 0.8 % (0.0-1.0); EOSINOPHILS # (AUTO) 0.1 (0.0-0.4); EOSINOPHILS % 0.9 % (0.0-6.0); HEMATOCRIT 36.6 % (34.2-44.1); HEMOGLOBIN 12.1 g/dL (12.0-16.0); LYMPHOCYTES # (AUTO) 2.5 (1.0-3.2); LYMPHOCYTES % 33.6 % (18.0-39.1); MEAN CORPUSCULAR HEMOGLOBIN 31.7 pg (28-32); MEAN CORPUSCULAR HGB CONC 33.1 g/dL (31-35); MEAN CORPUSCULAR VOLUME 95.8 fL (81-99); MONOCYTES # (AUTO) 0.6 (0.2-0.8); MONOCYTES % 7.3 % (4.4-11.3); NEUTROPHILS # (AUTO) 4.3 (2.1-6.9); NEUTROPHILS % 57.1 % (38.7-80.0); PLATELET COUNT 315 x10e3/uL (140-360); RED BLOOD COUNT 3.82 x10e6/uL (3.6-5.1); RED CELL DISTRIBUTION WIDTH 12.6 % (11.7-14.4)
[2020-02-28 15:57] LABS: INR 1.01; PROTHROMBIN TIME 13.8 seconds (11.9-14.5)
[2020-02-28 15:58] LABS: PARTIAL THROMBOPLASTIN TIME 31.5 seconds (23.8-35.5)
--- NOTE | 2020-02-28 16:01 | Diagnostic Imaging Report ---
EXAMINATION: CHEST 2 VIEWS INDICATION: ^recent aspiration pneumonia continues to cough ^[id number] ^[id number] COMPARISON: Chest radiograph 02/18/2020 FINDINGS: TUBES and LINES: None. LUNGS: Mild residual interstitial opacities in the bilateral lower lobes, likely represents resolving pneumonia or aspiration. No consolidations. PLEURA: No pleural effusion or pneumothorax. HEART AND MEDIASTINUM: The cardiomediastinal silhouette is unchanged. BONES AND SOFT TISSUES: No acute osseous lesion. Partially visualized cervical spine fusion hardware. Soft tissues are unremarkable. UPPER ABDOMEN: No free air under the diaphragm. IMPRESSION: Mild residual interstitial opacities in the bilateral lower lobes which have improved compared to prior exam, likely represents resolving pneumonia and/or aspiration. Signed by: Dr. Payam Daniel M.D. on 02/28/2020 3:57 PM
[2020-02-28 16:07] LABS: ALANINE AMINOTRANSFERASE 17 IU/L (0-55); ALBUMIN 4.2 g/dL (3.5-5.0); ALBUMIN/GLOBULIN RATIO 1.4 (0.8-2.0); ALKALINE PHOSPHATASE 55 IU/L (40-150); ANION GAP 15.6 mmol/L (8-16); BLOOD UREA NITROGEN 11 mg/dL (7-26); BUN/CREATININE RATIO 18 (6-25); CALCIUM 9.6 mg/dL (8.4-10.2); CARBON DIOXIDE 29 mmol/L (22-29); CHLORIDE 101 mmol/L (98-107); CREATINE KINASE 59 IU/L (29-168); CREATININE, SERUM 0.62 mg/dL (0.57-1.11); EST GLOMERULAR FILTRATION RATE > 60 ML/MIN (60-); GLUCOSE 89 mg/dL (74-118); POTASSIUM 3.6 mmol/L (3.5-5.1); SODIUM 142 mmol/L (136-145)
[2020-02-28 18:05] VITALS: BP 134/101
--- NOTE | 2020-02-28 18:15 | Emergency Department Note ---
History of Present Illnes History of Present Illness Chief Complaint: Respiratory History of Present Illness This is a 64 year old female pt was sent by his PCP from [place] for further evaluation of cough, pt states that she has been having a productive cough with white phlegm for 3 days now, pt states that she is recovering from having pneumonia that she took antibiotics for, room air O2 sat was 97%, no respiratory distress noted. 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 Arrival Mode: Car EMS Treatment PESTICIDE CHEMIST: IV Media Assistant Required: No Onset (how long ago): day(s) (yesterday) Location: lungs Quality: cough Radiation: Reports non-radiation Severity: mild Onset quality: gradual Timing of current episode: intermittent Progression: waxing and waning Chronicity: recurrent Context: Reports recent illness Relieving factors: none Exacerbating factors: none Associated symptoms: Reports denies other symptoms, Reports cough; Denies fever/chills, Denies shortness of breath Past Medical/Family History Physician Review I have reviewed the patient's past medical and family history. Any updates have been documented here. Past Medical History Recent Fever: No Clinical Suspicion of Infectio: No New/Unexplained Change in Ment: No Past Medical History: Hypertension, GERD Other Medical History: recurrent pnuemonia, fibromyalgia Other Surgery: spinal surgery Social History Smoking Cessation: Former smoker Counseling Performed: No Alcohol Use: None Any Illegal Drug Use: No TB Exposure/Symptoms: No Physically hurt or threatened: No Family History Family history of heart diseas: No Other Last Tetanus: 2009 Any Pre-Existing Lines (PICC,: No Review of Systems Review of Systems Constitutional: Reports no symptoms EENTM: Reports no symptoms Cardiovascular: Reports no symptoms Respiratory: Reports no symptoms, Reports as per HPI, Reports cough (no cough at all while i was in room and nurse said same) Gastrointestinal: Reports no symptoms Genitourinary: Reports no symptoms Musculoskeletal: Reports no symptoms Integumentary: Reports no symptoms Neurological: Reports no symptoms Psychological: Reports no symptoms Endocrine: Reports no symptoms Hematological/Lymphatic: Reports no symptoms Physical Exam Related Data Allergies: Coded Allergies: No Known Allergies (Unverified , 11/07/11) Triage Vital Signs Vital Signs Date Time Temp Pulse Resp B/P (MAP) Pulse Ox O2 Delivery O2 Flow Rate FiO2 02/28/20 14:43 98.6 74 17 138/72 99 Room Air Vital signs reviewed: Yes Physical Exam CONSTITUTIONAL Constitutional: Present well-developed, Present well-nourished HENT HENT: Present normocephalic, Present atraumatic, Present oropharynx clear /moist, Present nose normal HENT L/R: Present left ext ear normal, Present right ext ear normal EYES Eyes: Reports PERRL, Reports conjunctivae normal NECK Neck: Present ROM normal PULMONARY Pulmonary: Present effort normal, Present breath sounds normal CARDIOVASCULAR Cardiovascular: Present regular rhythm, Present heart sounds normal, Present capillary refill normal, Present normal rate GASTROINTESTINAL Abdominal: Present soft, Present nontender, Present bowel sounds normal GENITOURINARY Genitourinary: Present exam deferred SKIN Skin: Present warm, Present dry MUSCULOSKELETAL Musculoskeletal: Present ROM normal NEUROLOGICAL Neurological: Present alert, Present oriented x 3, Present no gross motor or sensory deficits PSYCHOLOGICAL Psychological: Present mood/affect normal, Present judgement normal Results Laboratory Result Diagram: 02/28/20 1528 02/28/20 1528 Laboratory Laboratory Tests Test 02/28/20 15:28 White Blood Count 7.57 x10e3/uL (4.8-10.8) Red Blood Count 3.82 x10e6/uL (3.6-5.1) Hemoglobin 12.1 g/dL (12.0-16.0) Hematocrit 36.6 % (34.2-44.1) Mean Corpuscular Volume 95.8 fL (81-99) Mean Corpuscular Hemoglobin 31.7 pg (28-32) Mean Corpuscular Hemoglobin Concent 33.1 g/dL (31-35) Red Cell Distribution Width 12.6 % (11.7-14.4) Platelet Count 315 x10e3/uL (140-360) Neutrophils (%) (Auto) 57.1 % (38.7-80.0) Lymphocytes (%) (Auto) 33.6 % (18.0-39.1) Monocytes (%) (Auto) 7.3 % (4.4-11.3) Eosinophils (%) (Auto) 0.9 % (0.0-6.0) Basophils (%) (Auto) 0.8 % (0.0-1.0) Neutrophils # (Auto) 4.3 (2.1-6.9) Lymphocytes # (Auto) 2.5 (1.0-3.2) Monocytes # (Auto) 0.6 (0.2-0.8) Eosinophils # (Auto) 0.1 (0.0-0.4) Basophils # (Auto) 0.1 (0.0-0.1) Absolute Immature Granulocyte (auto 0.02 x10e3/uL (0-0.1) Prothrombin Time 13.8 seconds (11.9-14.5) Prothromb Time International Ratio 1.01 Activated Partial Thromboplast Time 31.5 seconds (23.8-35.5) Sodium Level 142 mmol/L (136-145) Potassium Level 3.6 mmol/L (3.5-5.1) Chloride Level 101 mmol/L (98-107) Carbon Dioxide Level 29 mmol/L (22-29) Anion Gap 15.6 mmol/L (8-16) Blood Urea Nitrogen 11 mg/dL (7-26) Creatinine 0.62 mg/dL (0.57-1.11) Estimat Glomerular Filtration Rate > 60 ML/MIN (60-) BUN/Creatinine Ratio 18 (6-25) Glucose Level 89 mg/dL (74-118) Calcium Level 9.6 mg/dL (8.4-10.2) Total Bilirubin 0.5 mg/dL (0.2-1.2) Aspartate Amino Transf (AST/SGOT) 19 IU/L (5-34) Alanine Aminotransferase (ALT/SGPT) 17 IU/L (0-55) Alkaline Phosphatase 55 IU/L (40-150) Creatine Kinase 59 IU/L (29-168) Creatine Kinase MB 1.50 ng/mL (0-5.0) Troponin I 0.004 ng/mL (0-0.300) B-Type Natriuretic Peptide 81.0 pg/mL (0-100) Total Protein 7.2 g/dL (6.5-8.1) Albumin 4.2 g/dL (3.5-5.0) Globulin 3.0 g/dL (2.3-3.5) Albumin/Globulin Ratio 1.4 (0.8-2.0) Lab results reviewed: Yes Imaging Imaging results reviewed: Yes Procedures 12 Lead ECG Interpretation ECG Interpretation : ECG: ECG 1 Media Assistant: Interpreted by ED physician Date: Feb 28, 2020 Time: 15:34 Rhythm: sinus rhythm Rate: normal BPM: 63 QRS axis: normal ST segments normal: Yes T waves normal: Yes Clinical Impression: normal ECG Assessment & Plan Medical Decision Making MDM cough, pain with coughing, recent aspiration pneumonia due to narcotic overuse and admit - check cbc, chem, blood cx's, cxr, ecg, cardiacs - r/o pneumonia, stemi/nstemi, chf, copd Reassessment Reassessment CLAUDIA HAHN, RAUL MILLER MDI, F/U PCP Assessment & Plan Final Impression: (1) Bronchitis Depart Disposition: HOME, SELF-CARE Last Vital Signs Date Time Temp Pulse Resp B/P (MAP) Pulse Ox O2 Delivery O2 Flow Rate FiO2 02/28/20 18:05 72 18 98 02/28/20 14:43 98.6 138/72 Room Air Home Meds Active Scripts Amoxicillin/Potassium Clav (AUGMENTIN 875-125 TABLET) 1 Each Tablet, 1 EACH PO BID for 3 Days, #6 Prov:JENNIFER BELTRE [employer] 02/21/20 Reported Medications Atorvastatin Calcium (ATORVASTATIN CALCIUM) 40 Mg Tablet, 1 TAB PO RDAILY 12/06/12 Carisoprodol (Soma) 350 Mg Tablet 11/07/11 Hydrocodone Bit/Acetaminophen ([place] 10-325 Tablet) 1 Each Tablet 11/07/11 Pregabalin (Lyrica) 100 Mg Capsule 11/07/11 Esomeprazole Mag Trihydrate (Nexium) 40 Mg Capsule. 11/07/11 Lisinopril (Lisinopril) 40 Mg Tablet 11/07/11 Medications in the ED Sodium Chloride 1,000 ml @ 0 mls/hr Q0M STAT IV Last administered on 02/28/20at 16:29; Admin Dose 1,000 MLS/HR; Start 02/28/20 at 14:55; Stop 02/28/20 at 14:58; Status DC SHEBA ZEPEDA MD Feb 28, 2020 18:15
== END 2020-02-28 18:14 | disposition home or self-care (01) ==
LOC: ER 14:38
DX: J40 Bronchitis, not specified as acute or chronic (principal); R05 Cough; I10 Essential (primary) hypertension; K21.9 Gastro-esophageal reflux disease without esophagitis; M79.7 Fibromyalgia
CPT/HCPCS: 36415; 71046; 80053; 82550; 82553; 83880; 84484; 85025; 85610; 85730; 87086; 93005; 99284; J7030

== ENCOUNTER 2020-07-18 13:26 | Emergency (ER) | payer MEDICARE, BC ==
[~2020-07-18] VITALS: Ht 157.5 cm; Wt 65.8 kg
[2020-07-18 14:28] LABS: CLARITY,URINE CLEAR (CLEAR); COLOR,URINE YELLOW (YELLOW); KETONES,URINE NEGATIVE (NEGATIVE); LEUKOCYTE ESTERASE ,URINE NEGATIVE (NEGATIVE); NITRITE,URINE NEGATIVE (NEGATIVE); PROTEIN,URINE DIPSTICK NEGATIVE (NEGATIVE); URINE UROBILINOGEN 0.2 mg/dL (0.2 - 1)
[2020-07-18 14:36] LABS: STREPTOCOCCUS GRP A ANTIGEN NEGATIVE (NEGATIVE)
[2020-07-18 14:41] LABS: BACTERIA,URINE FEW /HPF; EPITHELIAL CELLS,URINE RARE /LPF; RBC,URINE 0-5 /HPF (0-5); WBC,URINE (MAN) 0-5 /HPF (0-5)
[2020-07-18 14:42] LABS: INFLUENZAE A&B ANTIGEN (RAPID) NEGATIVE (NEGATIVE)
[2020-07-18 15:09] VITALS: BP 135/84
== END 2020-07-18 15:10 | disposition home or self-care (01) ==
LOC: ER 13:35
DX: J02.9 Acute pharyngitis, unspecified (principal); R53.1 Weakness; R30.0 Dysuria; I10 Essential (primary) hypertension; K21.9 Gastro-esophageal reflux disease without esophagitis; M79.7 Fibromyalgia
CPT/HCPCS: 81001; 83518; 87070; 87400; 99282

== ENCOUNTER 2021-09-15 21:24 | Emergency (ER) | payer MEDICARE, BC ==
[~2021-09-15] VITALS: Ht 157.5 cm; Wt 63.5 kg
[2021-09-15] MEDS ORDERED: METHYLPREDNISOLONE SOD SUCC 125 MG/2ML VIAL IV STA (21:59)
[2021-09-15] MEDS ORDERED: KETOROLAC TROMETHAMINE 30 MG/ML VIAL IV STA (21:59)
[2021-09-15] MEDS ORDERED: SODIUM CHLORIDE 0.9% 1000ML 1,000 ML IV STA (21:59)
[2021-09-15 22:19] LABS: BASOPHILS # (AUTO) 0.1 (0.0-0.1); EOSINOPHILS # (AUTO) 0.2 (0.0-0.4); EOSINOPHILS % 1.9 % (0.0-6.0); HEMATOCRIT 37.7 % (34.2-44.1); HEMOGLOBIN 12.9 g/dL (12.0-16.0); LYMPHOCYTES # (AUTO) 2.5 (1.0-3.2); LYMPHOCYTES % 29.7 % (18.0-39.1); MEAN CORPUSCULAR HEMOGLOBIN 33.6 pg (28-32); MEAN CORPUSCULAR HGB CONC 34.2 g/dL (31-35); MEAN CORPUSCULAR VOLUME 98.2 fL (81-99); MONOCYTES # (AUTO) 0.6 (0.2-0.8); NEUTROPHILS % 60.2 % (38.7-80.0); PLATELET COUNT 236 x10e3/uL (140-360); RED BLOOD COUNT 3.84 x10e6/uL (3.6-5.1)
[2021-09-15 22:40] LABS: ALBUMIN 4.1 g/dL (3.5-5.0); ALBUMIN/GLOBULIN RATIO 1.1 (0.8-2.0); ANION GAP 12.9 mmol/L (8-16); CALCIUM 9.5 mg/dL (8.4-10.2); CREATININE, SERUM 0.68 mg/dL (0.57-1.11); POTASSIUM 3.9 mmol/L (3.5-5.1)
[2021-09-15 22:42] LABS: AMPHETAMINES SCREEN,URINE NEGATIVE (NEGATIVE); BENZODIAZEPINES SCREEN,URINE NEGATIVE (NEGATIVE); CLARITY,URINE CLEAR (CLEAR); COLOR,URINE YELLOW (YELLOW); KETONES,URINE NEGATIVE (NEGATIVE); LEUKOCYTE ESTERASE ,URINE NEGATIVE (NEGATIVE); NITRITE,URINE NEGATIVE (NEGATIVE); PHENCYCLIDINE SCREEN,URINE NEGATIVE (NEGATIVE); PROTEIN,URINE DIPSTICK NEGATIVE (NEGATIVE); URINE UROBILINOGEN 0.2 mg/dL (0.2 - 1)
[2021-09-15 22:45] LABS: BACTERIA,URINE RARE /HPF; EPITHELIAL CELLS,URINE FEW /LPF; RBC,URINE 0-5 /HPF (0-5); WBC,URINE (MAN) 0-5 /HPF (0-5)
== END 2021-09-15 23:55 | disposition home or self-care (01) ==
LOC: ER 21:52
DX: M54.2 Cervicalgia (principal); M54.9 Dorsalgia, unspecified; I10 Essential (primary) hypertension; K21.9 Gastro-esophageal reflux disease without esophagitis; M79.7 Fibromyalgia; Z87.01 Personal history of pneumonia (recurrent)
CPT/HCPCS: 36415; 71045; 80053; 80307; 81001; 85025; 93005; 99284; J1885; J2930; J7030

== ENCOUNTER 2022-07-23 17:42 | Emergency (ER) | payer MEDICARE, BC, OTHER ==
[~2022-07-23] VITALS: Ht 157.5 cm; Wt 63.5 kg
[2022-07-23] MEDS ORDERED: ONDANSETRON HCL INJ 2MG/ML 2ML 2 MG/ML VIAL IV STA (18:06)
[2022-07-23] MEDS ORDERED: SODIUM CHLORIDE 0.9% 1000ML 2,000 ML ONE (18:13)
[2022-07-23 18:14] LABS: BASOPHILS # (AUTO) 0.1 (0.0-0.1); BASOPHILS % 0.9 % (0.0-1.0); EOSINOPHILS # (AUTO) 0.1 (0.0-0.4); EOSINOPHILS % 1.3 % (0.0-6.0); HEMATOCRIT 36.8 % (34.2-44.1); HEMOGLOBIN 11.2 g/dL (12.0-16.0); LYMPHOCYTES # (AUTO) 2.4 (1.0-3.2); LYMPHOCYTES % 33.9 % (18.0-39.1); MEAN CORPUSCULAR HEMOGLOBIN 32.7 pg (28-32); MEAN CORPUSCULAR HGB CONC 30.4 g/dL (31-35); MEAN CORPUSCULAR VOLUME 107.3 fL (81-99); MONOCYTES # (AUTO) 0.4 (0.2-0.8); MONOCYTES % 5.9 % (4.4-11.3); NEUTROPHILS # (AUTO) 4.1 (2.1-6.9); NEUTROPHILS % 57.9 % (38.7-80.0); PLATELET COUNT 215 x10e3/uL (140-360); RED BLOOD COUNT 3.43 x10e6/uL (3.6-5.1); RED CELL DISTRIBUTION WIDTH 11.8 % (11.7-14.4)
[2022-07-23] MEDS ORDERED: SODIUM CHLORIDE 0.9% 1000ML 1,000 ML IV ONE ×2 (18:15)
[2022-07-23] MEDS ORDERED: NALOXONE HCL 2MG/2 ML SYRINGE IV ONE (18:15)
[2022-07-23] MEDS ORDERED: NALOXONE HCL 2MG/2 ML SYRINGE ONE (18:20)
[2022-07-23 18:21] LABS: CLARITY,URINE CLEAR (CLEAR); COLOR,URINE YELLOW (YELLOW); KETONES,URINE NEGATIVE (NEGATIVE); LEUKOCYTE ESTERASE ,URINE NEGATIVE (NEGATIVE); NITRITE,URINE NEGATIVE (NEGATIVE); PROTEIN,URINE DIPSTICK NEGATIVE (NEGATIVE)
[2022-07-23 18:22] LABS: AMPHETAMINES SCREEN,URINE NEGATIVE (NEGATIVE); BENZODIAZEPINES SCREEN,URINE NEGATIVE (NEGATIVE); PHENCYCLIDINE SCREEN,URINE NEGATIVE (NEGATIVE); URINE UROBILINOGEN 0.2 mg/dL (0.2 - 1)
[2022-07-23] MEDS ORDERED: ONDANSETRON HCL INJ 2MG/ML 2ML 2 MG/ML VIAL ONE (18:23)
[2022-07-23 18:28] LABS: ALBUMIN 3.6 g/dL (3.5-5.0); ALBUMIN/GLOBULIN RATIO 1.3 (0.8-2.0); ANION GAP 13.1 mmol/L (8-16); CALCIUM 9.2 mg/dL (8.4-10.2); CREATININE, SERUM 1.2 mg/dL (0.57-1.11); POTASSIUM 4.1 mmol/L (3.5-5.1)
[2022-07-23 18:29] LABS: BACTERIA,URINE FEW /HPF; EPITHELIAL CELLS,URINE FEW /LPF; RBC,URINE 0-5 /HPF (0-5); WBC,URINE (MAN) 0-5 /HPF (0-5)
[2022-07-23 18:35] LABS: CREATINE KINASE MB 1.4 ng/mL (0-5.0)
[2022-07-23 19:08] LABS: SALICYLATE < 5.0 mg/dL (0-30)
[2022-07-24 00:03] VITALS: BP 117/70
== END 2022-07-24 | disposition home or self-care (01) ==
LOC: ER 17:51
DX: I95.9 Hypotension, unspecified (principal); T40.601A Poisoning by unspecified narcotics, accidental (unintentional), initial encounter; Y92.89 Other specified places as the place of occurrence of the external cause
CPT/HCPCS: 36415; 51700; 70450; 71045; 80053; 80307; 80320; 80329 ×2; 81001; 82550; 82553; 83880; 84484; 85025; 93005; 99284; J2310; J2405; J7030